=== PATIENT | female | born 1940 | race Caucasian/White ===

== ENCOUNTER → 2016-08-03 | Outpatient (CLI) | payer MEDICARE, BC ==
[~2016-08-03] MED LIST: ALBUTEROL2.5 MG/0.5 INH; AMBIEN10 MG PO; ANORO ELLIPTA1 EACH; ARTIFICIAL TEAR15 ML OPHTH; ASPIRIN LO-DOSE81 MG PO; ASPIRIN325 MG PO; BUMEX1 MG PO; COREG 3.1253.125 MG PO; COZAAR100 MG PO; COZAAR50 MG PO; CRESTOR20 MG PO; DELTASONE10 MG PO; HUMIBID LA (MU600 MG PO; IMDUR30 MG PO; IMDUR60 MG PO; IPRAT-ALBUT 0.5-3 ML INH; LASIX40 MG PO; LIPITOR80 MG; LIPITOR80 MG PO; MIRALAX17 GM PO; NITROGLYCERIN0.4 MG SL; NORVASC5 MG PO; PERCOCET 5-3251 EACH PO; PROTONIX40 MG PO; PROVENTIL OR V6.7 GM INH; PROZAC20 MG PO; RANEXA1000 MG PO; TESSALON PERLE100 MG PO; TYLENOL325 MG PO; ZETIA10 MG PO
[2016-08-03 16:43] LABS: ANION GAP 10.2 (10.0-19.0); CALCIUM 9.2 mg/dL (8.5-10.5); CREATININE 1.2 mg/dL (0.5-1.1)
[2016-08-03 16:47] LABS: POTASSIUM 4.2 mMol/L (3.7-5.1)
== END | disposition disaster alternative care site (69) ==
LOC: LGSOS 16:19
PROVIDERS: Internal Medicine Interventional Cardiology
DX: I20.8 Other forms of angina pectoris (principal)

== ENCOUNTER 2016-11-22 16:30 | Inpatient (IN) | payer MEDICARE, BC ==
[~2016-11-22] VITALS: Ht 157.5 cm; Wt 98.5 kg
--- NOTE | ~2016-11-22 | CON ---
PATIENT'S NAME: CONNOR COOK [facility] AGE: 76 Y [address] ROOM: G6334 [place], [place] [address] LOCATION: GPCU ADMIT DATE: 11/22/2016 Consultation DISCHARGE DATE: FAMILY PHYSICIAN: Nandini Thomas MD ATTENDING PHYSICIAN: Nandini Thomas DATE OF CONSULTATION: 11/24/2016 REFERRING PHYSICIAN: Ezekiel Wilson MD REFERRING PHYSICIAN: Dr. Cazares REASON FOR CONSULTATION: VIVIANA on CKD. HISTORY OF PRESENT ILLNESS: A 76-year-old lady with a complex cardiopulmonary history including coronary artery disease, status post CABG x4 vessel, advanced diastolic heart failure, hypertension, diabetes, hyperlipidemia, carotid artery disease, status post endarterectomy, peripheral artery disease, possible restrictive lung disease, multiple episodes of VIVIANA, possibly cardiorenal syndrome, type 1 in the past, admitted with hypoxic respiratory failure with significant shortness of breath and dyspnea on exertion with NYHA class III to class IV dyspnea thought to be due to volume overloaded, got diuresed gently with Lasix 40 twice a day for a couple of days and then Lasix 40 daily today, creatinine at baseline was 1 to 1.1, maybe 1.2 on occasion, 1.7 on admission, and went up to 2.2 today. We did not see any contrast study or any nephrotoxic exposure since hospital admission. The patient's urine output appears to be high and the patient was almost 1.7 L net negative on the day of admission; however, yesterday, the patient's intake and output was almost equal. Her baseline body weight appears to be between 96 to 98 kilos and today she is 106 kilos, but during my physical exam, except a small elevation of JVD, she does not have any significant sign of fluid overload. She does not have any significant dependent edema. Currently, on 3 L of oxygen. Has mild bibasilar crackles. RV on echo has increased pressure and mildly dilated suggestive of fluid overload, which has been done yesterday morning. The patient otherwise comfortable, sitting up in the chair without any apparent distress, not on any ESTRELLA gerry at this point. No signs of uremia or any other symptoms. REVIEW OF SYSTEMS: GENERAL: No fever. No chills or rigor. HEENT: No sore throat. No sinus congestion. CVS: No chest pain. No exertional shortness of breath. No leg swelling. RESPIRATORY: No shortness of breath. No cough. No wheezing. GENITOURINARY: No pain with urination. No increased frequency. No nocturia. GASTROINTESTINAL: No abdominal pain. No abdominal distention. No nausea or vomiting. NEUROLOGIC: No weakness. No seizures. SKIN: No rash. No itching. ALLERGIES: No seasonal allergy. No hayfever. ENDOCRINE: No heat intolerance. No cold intolerance. PSYCHIATRIC: No sadness. No crying spells. No history of panic attack.PATIENT'S NAME: CONNOR COOK [facility] AGE: 76 Y [address] ROOM: [place] [address] LOCATION: GPCU ADMIT DATE: 11/22/2016 Consultation DISCHARGE DATE: FAMILY PHYSICIAN: Nandini Thomas MD ATTENDING PHYSICIAN: Nandini Thomas PAST MEDICAL HISTORY: 1. Hypertension. 2. Diabetes. 3. Hyperlipidemia. 4. Possible restrictive lung disease. 5. Carotid artery disease. 6. Coronary artery disease. 7. Peripheral vascular disease. HOME MEDICATIONS: 1. Albuterol. 2. Combivent. 3. Oxycodone. 4. Zolpidem. ALLERGIES: IODINE AND SULFA. PAST SURGICAL HISTORY: , hysterectomy, cholecystectomy, CABG, and carotid endarterectomy. SOCIAL HISTORY: Former smoker, stopped several years ago. No 1st or 2nd hand smoke exposure in current days. No alcohol or illicit drug use. FAMILY HISTORY: Diabetes and coronary artery disease. No history of premature CAD, CKD, or sudden . PHYSICAL EXAMINATION: VITAL SIGNS: Blood pressure 130 to 140s/60 to 70, pulse is 70, respiratory rate 18, afebrile, and saturating 90% to 95% on room air. GENERAL: Not in apparent distress. HEAD: Moist mucous membranes. Bilateral PERRLA, EOMI. NECK: Mild elevation of JVD. No thyromegaly or lymphadenopathy. CVS: S1 and S2 normal, regular rate and rhythm. No murmur, rub, gallop. CHEST: Bilateral air entry equal. Occasional bibasilar rales. ABDOMEN: Soft, nontender, nondistended. Bowel sounds present. EXTREMITIES: No cyanosis, clubbing, jaundice. Trace dependent edema. MUSCULOSKELETAL: No limitation of range of motion. SKIN: No pallor, cyanosis, icterus. DRAWING IN MACHINE TENDER: Alert and oriented x3. No gross findings. LABORATORY DATA: Pro-BNP 1192. Chemistry sodium 136, potassium 4.3, chloride 100, bicarbonate 27, BUN 35, creatinine 2.2, glucose 216, calcium 8.7, and albumin 3.4. Urinalysis straw-colored urine with a specific gravity of 1.005, pH of 7, 100 LE, 20 to 50 wbcs, negative for rbc, 2 to 5 epithelial cells, and moderate bacteria. Urine culture is growing gram-negative rods more than 100,000 colonies.PATIENT'S NAME: CONNOR COOK [facility] AGE: 76 Y [address] ROOM: [place] [address] LOCATION: GPCU ADMIT DATE: 11/22/2016 Consultation DISCHARGE DATE: FAMILY PHYSICIAN: Nandini Thomas MD ATTENDING PHYSICIAN: Nandini Thomas ASSESSMENT AND PLAN: 1. Nonoliguric acute kidney injury on chronic kidney disease, stage 3, baseline creatinine around 1.1 to 1.2, with estimated GFR around 40, today creatinine is 2.2. The patient did not get any huge dose of diuretic, had Lasix 40 b.i.d. for last couple of days, but now on Lasix 40 daily; however, had a history of extreme volume responsiveness in the past with diastolic heart failure and possibly pulmonary hypertension plus plan to hold diuretic for now. We will send urinalysis and urine electrolytes including sodium, potassium, creatinine osmolality, and urine urea nitrogen. We will do renal ultrasound to look at renal architecture, corticomedullary differentiation, and renal size, also to rule out any obstructive etiology. Recommend strict intake and output monitoring with daily standing weight, avoid any nephrotoxin exposure including NSAIDs and contrast media or any other nephrotoxic agents. Hemodynamic stability to be maintained with a MAP more than 65. 2. Advanced diastolic heart failure, admitted with dyspnea on exertion, shortness of breath, and hypoxic respiratory failure, currently on 3 L of oxygen, but the patient appears to be comfortable without any significant distress. The patient got 40 of Lasix this morning. We will hold off on further diuretic at this point and we will slowly restart back on her home diuretic regimen. The patient's volume status is likely up than her baseline; however, as mentioned above, the patient is extremely volume sensitive and aggressive diuresis may cause further azotemia without any significant increase in diuresis. 3. Coronary artery disease, status post coronary artery bypass graft x3. Repeat left heart catheterization shows some blockage in the vessels. No further intervention was planned as per Dr. Wilson. 4. Chronic obstructive pulmonary disease versus restrictive lung disease. FVC and FEV1 both in 40% to 50% range, probably need a pulmonary evaluation for further evaluation. 5. Peripheral vascular disease with critical right pulmonary artery stenosis. No posterior artery stenting has been planned at this point. We will follow up. Thank you for allowing me to participate in this patient's care. We will closely monitor the patient's progress along with you. ABHISEKH SUNNY KNIGHT MD /modl /[id number] d: 11/25/16 0043 t: 12/08/16 0947, CONSULTATION REPORT
--- NOTE | ~2016-11-22 | CON ---
PATIENT'S NAME: JOEY [facility] AGE: 76 Y [address] ROOM: [place] [address] LOCATION: GPCU ADMIT DATE: 11/22/2016 Consultation DISCHARGE DATE: FAMILY PHYSICIAN: Nandini Thomas MD ATTENDING PHYSICIAN: Nandini Thomas REFERRING PHYSICIAN: Ezekiel Wilson MD REFERRING PHYSICIAN: Dr. Nandini Thomas. REASON FOR CONSULT: Shortness of breath and chest pain. HISTORY OF PRESENT ILLNESS: This is a 76-year-old female, who was seen by her primary care physician yesterday. She was complaining of increased shortness of breath as well as increased leg edema. She states that she has "gained quite a bit of weight." She was complaining of increased orthopnea and now has a cough that occurs more often when she is lying down. She also notes some discomfort in her chest with activity, especially when she is very short of breath. She reports that she has to stop and rest when she is getting dressed in the morning or walking to the bathroom. She states her symptoms have been "coming on" for the past month or so. She denies feeling any palpitations. She has had some lightheadedness but denies syncope or falls. She currently is [place] Functional Class 3. She received Lasix 40 mg and states she is feeling a little bit better. While talking, she does drop her oxygen sat less than 90% and she is wearing oxygen at 2 L currently. She does not wear O2 at home, other than at nighttime. PAST MEDICAL HISTORY: 1. Coronary artery disease. 2. Essential hypertension. 3. Hyperlipidemia. 4. History of heart failure. 5. Peripheral vascular disease. 6. History of TIA. 7. Asthma. 8. B12 deficiency. 9. Chronic renal insufficiency, stage 3. 10. Claudication. 11. COPD. 12. Depressive disorder. 13. Diabetes mellitus type 2. 14. Neuropathy, peripheral. 15. Obesity. 16. Osteoporosis. PATIENT'S NAME: JOEY [facility] AGE: 76 Y [address] ROOM: [place] [address] LOCATION: GPCU ADMIT DATE: 11/22/2016 Consultation DISCHARGE DATE: FAMILY PHYSICIAN: Nandini Thomas MD ATTENDING PHYSICIAN: Nandini Thomas PAST SURGICAL HISTORY: 1. Tonsillectomy. 2. 1959 and 1964. 3. Ovarian cystectomy. 4. Hysterectomy in . 5. Breast biopsy, left breast, 1969. 6. IVUS to stented RCA with angioplasty of the RCA with stent placement, mid RCA on 12/22/1997. 7. Left heart catheterization, stent to a 90% diagonal with type C dissection, 01/20/1998. 8. Left heart catheterization, PTCA, stent, small diagonal branch. Patent RCA, 02/16/1998. 9. Left heart catheterization, PTCA, totally occluded diagonal branch, 03/23/1998. 10. Cholecystectomy, 2008. 11. Colonoscopy, 09/19/2009. 12. Coronary artery bypass graft surgery in 2001. 13. Left heart catheterization and severe two-vessel disease, 3 of 4 grafts patent, 01/13/2002. 14. Left heart catheterization, PTCA stent of the LAD graft, 06/14/2007. 15. Left heart catheterization, no critical lesions or left main disease, 05/18/2008. 16. EGD, 11/02/2015. 17. Left heart catheterization, 10/05/2015. 18. Normal stress, April 09, 2016. ALLERGIES: TO SULFA, CAUSING SHORTNESS OF BREATH AND HIVES, WELL IODINE CONTRAST. CURRENT MEDICATIONS: Home medications: 1. Acetaminophen 325 mg every 4 hours. 2. Albuterol HFA 1 puff every 4 hours as needed and vial per nebulizer b.i.d. as needed. 3. Aspirin 81 mg daily. 4. Carvedilol 3.125 mg daily. 5. Zetia 10 mg daily. 6. Prozac 20 mg daily. 7. Lasix 40 mg p.o. b.i.d. 8. Ipratropium-albuterol 0.5/3 1 vial b.i.d. nebulizer. 9. Isosorbide 60 mg every day. 10. Nitroglycerin 0.4 mg sublingual p.r.n. 11. Percocet 5/325 2 tablets every 6 hours p.r.n. pain. 12. Artificial tears one drop p.r.n. PATIENT'S NAME: CONNOR COOK [facility] AGE: 76 Y [address] ROOM: [address] [place], [place] [address] LOCATION: GPCU ADMIT DATE: 11/22/2016 Consultation DISCHARGE DATE: FAMILY PHYSICIAN: Nandini Thomas MD ATTENDING PHYSICIAN: Nandini Thomas 13. Ranexa 1000 mg b.i.d. 14. Crestor 20 mg every bedtime. 15. Ambien 10 mg, she takes 1/2 tablet every bedtime. In-hospital medications: 1. Albuterol-ipratropium 0.5-3 mg/mL nebulizer every 4 hours. 2. Lasix IV 40 mg b.i.d. 3. Solu-Medrol 125 mg every 12 hours. 4. Aspirin 81 mg daily. 5. Coreg 3.125 mg p.o. b.i.d. 6. Crestor 20 mg every bedtime. 7. Imdur 60 mg every bedtime. 8. Prozac 20 mg every day. 9. Ranexa 500 mg, she takes a 1000 mg b.i.d. 10. Zetia 10 mg every day. FAMILY HISTORY: Father at 60 of cancer. Mother at the age of 73, she had heart disease. She has 3 brothers and 6 sisters. History is positive for cancer, cardiovascular disease, diabetes mellitus, type 2, and a CVA. SOCIAL HISTORY: She is a former smoker. She smoked at a young age for 4-5 years, socially only. REVIEW OF SYSTEMS: GENERAL: She denies fevers or chills. She reports she has had, "a lot of weight gain." HEENT: Head, no history of headache. Eyes, she denies any recent vision changes. She wears corrective lenses. Ears, no problems with hearing. Nose, no epistaxis. Throat, no difficulty with swallowing. CV: Per HPI. PULMONARY: She has a history of asthma and COPD. She has been complaining of increased shortness of breath as well as orthopnea and a cough. GI: Negative for nausea, vomiting, or diarrhea. No melena or hematochezia. No history of GI bleed. GENITOURINARY: Negative for dysuria, polyuria, hematuria, or frequent urinary tract infections. She is not complaining of polyuria or polydipsia. NEUROLOGIC: No feelings of off-balance. No HAY BALER disease processes. DERMATOLOGIC: No skin, hair, or nail changes that are concerning. HEMATOLOGIC: No anemia or leukemia. MUSCULOSKELETAL: She does complain of arthritic discomfort. PHYSICAL EXAMINATION: VITAL SIGNS: Her blood pressure is 147/69, heart rate 75, respirations 22, PATIENT'S NAME: CONNOR COOK [facility] AGE: 76 Y [address] ROOM: [place] [address] LOCATION: GPCU ADMIT DATE: 11/22/2016 Consultation DISCHARGE DATE: FAMILY PHYSICIAN: Nandini Thomas MD ATTENDING PHYSICIAN: Nandini Thomas temperature is 97.8. Her weight on admission was 106.9. Skin: Warm, dry, and pink. HEENT: Pupils equal, round, and react briskly. LUNGS: Sounds were diminished with a few wheezes. CV: Regular with a normal S1, S2. ABDOMEN: Soft. Bowel sounds are present. EXTREMITIES: Show trace to 1+ pedal edema bilaterally. LABORATORY DATA: Hemoglobin was 12.2, BNP 546, sodium 143, potassium 4.7, BUN 15, creatinine 1.15. Cardiac enzymes are negative x3. Hemoglobin A1c was 7.5. Her white count was 6.6. ASSESSMENT: 1. Shortness of breath. We will await the echocardiogram for further evaluation of her EF and diastolic heart pressures. 2. Chest pain. She recently had a stress test in April that was normal. She is a little hypoxic. We will see what her V/Q scan shows today. 3. Volume overload. We will continue one more day of b.i.d. IV Lasix, and watch for orthostatic hypotension and we will look at her lab values, monitoring her creatinine. The assessment and plan, history of present illness, and physical exam are per Dr. Wilson's. Further recommendations will be forthcoming as information becomes available. BEVERLEY SMITH APRN FOR MD BRANDIE MERRITT/oneyda /[id number] d: 11/23/16 1524 t: 12/07/16 1620, CONSULTATION REPORT
--- NOTE | ~2016-11-22 | ECHO ---
Transthoracic Echocardiography Report (TTE) Demographics Patient Name CONNOR COOK Date of Study 11/23/2016 E Patient Number [id number] Visit Number [id number] Date of 1940 Room Number G6334 Gender Female Number Age 76 year(s) Referring William Moore MD Clearing Distribution Clerk Shelby Lay RDCS, Physician RVT, RDMS, CREDIT COLLECTIONS MANAGER Physician Interpreting Steve Falcon MD Paper Tester Physician Supervising Ordering William Moore MD, MD/MLP Physician Nurse Stress Roundhouse Worker Conclusions Contractility Score Summary Normal Left Ventricular contractility was noted. Summary Technically difficult exam. The estimated left ventricular ejection fraction is 60-65%. The left ventricle is normal in size . Mild to moderate concentric left ventricular hypertrophy. Normal systolic function. Diastolic assessment reveals Grade II pseudonormal diastolic function . E/e' of 18 is consistent with elevated left ventricular filling pressures. The left atrium is mildly dilated by LA volume index measurement. Moderate to severe mitral annular calcification. Mild to moderate calcification of the mitral valve. Trivial mitral regurgitation by color Doppler. The aortic valve is moderately sclerotic. Visualized portions of the aortic root and ascending aorta appear normal in size is heavily calcified. Procedure Type of Study TTE procedure:2D Echocardiogram, M-Mode, Doppler , Color Doppler. Procedure Date Date: 11/23/2016 Start: 03:30 PM Study Location: Inpatient Portable Technical Quality: Fair due to body habitus. Indications:CHF. Additional Indications:CAD, SOB Appropriate Use Criteria: 9 Patient Status: Routine HR: 84 bpm BP: 111/68 mmHg Allergies - Sulfa. M-Mode/2D Measurements LV Diastolic Dimension: 4.6 cm LV Systolic Dimension: 3.02 cm LV Septum Diastolic: 1.26 cm LV PW Diastolic: 1.23 cm AO Root Dimension: 2.2 cm Cardiac Output: 4.47 l/min AV Cusp Separation: 1.7 cm RV Diastolic Dimension: 2.55 cm LA volume: 73 ml LVOT: 1.8 cm RV Base: 3.3 cm LVOT VTI: 20.9 cm RV Mid: 2.8 cm LV Stroke volume: 53.16 ml TAPSE: 1.6 cm Doppler Measurements AV Peak Velocity: 1.37 m/s MV Peak E-Wave: 0.97 m/s AV Peak Gradient: 7.51 mmHg MV Peak A-Wave: 0.87 m/s AV Mean Gradient: 4 mmHg MV E/A Ratio: 1.12 LVOT Peak Velocity: 1.11 m/s MV P1/2t: 65 msec Estimated RAP:8 mmHg PV Peak Velocity: 1.1 m/s E' Septal Velocity: 0.05 m/s PV Peak Gradient: 4.84 mmHg E' Lateral Velocity: 0.06 m/s A' Septal Velocity: 0.1 m/s MV E/E' Ratio: 18 A' Lateral Velocity: 0.11 m/s Findings Left Ventricle The left ventricle is normal in size . Mild to moderate concentric left ventricular hypertrophy. Normal systolic function. Diastolic assessment reveals Grade II pseudonormal diastolic function . E/e' of 18 is consistent with elevated left ventricular filling pressures. Right Ventricle Mildly dilated right ventricle. Left Atrium The left atrium is moderately dilated. Right Atrium The right atrium is not dilated. Mitral Valve Moderate to severe mitral annular calcification. Mild to moderate calcification of the mitral valve. Trivial mitral regurgitation by color Doppler. Aortic Valve The aortic valve is moderately sclerotic. Tricuspid Valve Normal tricuspid valve structure and function. Insufficient tricuspid waveform to assess pulmonary pressures. Pulmonic Valve Normal pulmonic valve structure and function. Pericardial Effusion No evidence of pericardial effusion. Miscellaneous Visualized portions of the aortic root and ascending aorta appear normal in size is heavily calcified. Pleural Effusion No evidence of pleural effusion. Contractility Score LV regional wall motion:(0-Non visualized 1-Normal 2-Hypokinesis 3-Akinesis 4-Dyskinesis 5-Aneurysm) Signature dtt: Ezekiel Wilson (cardio) dtd: 11/23/16 1530 Physician Self Edit
--- NOTE | ~2016-11-22 | ESTC ---
Cardiac Perfusion Imaging Demographics Patient Name JOEY Goyal Gender Female Patient Number [id number] Race Visit Number [id number] [place] [id number] Room Number G6334 Accession Number [id number] Height 62 inches Date of 1940 Weight 235 pounds William Moore MD Interpreting CNC Date of study 11/24/2016 Physician Steve Falcon MD Supervising /RADHA Harmon NM Technologist Vimal Xavier APRN Ordering Physician Steve Falcon MD Stress point of care technician Stress ECG Reading Norbert Harmon Nurse Wong Moore Physician DESEAN RN Mimi Goyal RN Medications Reviewed with Patient prior to Procedure. Procedure Procedure Type: Nuclear Stress Test:Pharmacological, Lexiscan, Cardiolite Stress Test Procedure Start time: 11/24/2016 09:15 Indications: CHF, History of CAD, Diabetes, COPD, Chest heaviness and Hypertension. Risk Factors The patient risk factors include:prior PCI;prior CABG;peripheral arterial disease, obesity, cerebrovascular disease, former tobacco use, treated hypercholesterolemia, treated hypertension, family history of premature CAD, diabetes mellitus, chronic lung disease, dyslipidemia, renal failure, prior heart failure and prior [place] . Conclusions Summary Cardiolite SPECT images demonstrate an anteroseptal and septal fixed defect extending from the base to the mid portion. No evidence of inducible reversibilty. Normal TID ratio Gated images demonstrate mild to moderate hypokinesis of the above mentioned area of fixed defect. LVEF is 44% Stress Protocols Resting ECG RSR with T wave inversion Resting HR:82 bpm Resting BP:107/60 mmHg Pre-stress physical exam: Patient assessed by Trini Toussaint APRN prior to testing. Stress Protocol:Pharmacologic Peak HR:92 bpm HR response: Appropriate Peak BP:121/53 mmHg BP response: Appropriate Predicted HR: 144 bpm HR/BP product:35258 % of predicted HR: 64 Reason for termination:Infusion complete ECG Findings Indeterminate ECG due to baseline abnormalities. Arrhythmias No rhythm abnormality. Symptoms Shortness of breath. Stress Interpretation Appropriate hemodynamic response to Lexiscan. No significant ST-T wave changes with Lexiscan. ECG portion is negative for ischemia by diagnostic criteria. Stress supervision and interpretation provided by Maribel Toussaint APRN . Imaging Results Summed scores - Summed stress score: 15 - Summed rest score: 9 - Summed difference score: 6 Stress ejection Ejection fraction:44 % EDV :111 ml ESV :62 ml Stroke volume :49 ml LV mass :142 gr Imaging Protocols Rest Stress Isotope:Tc99m Sestamibi IV Isotope: Tc99m Sestamibi IV Isotope dose:15.3 mCi Isotope dose:46.3 mCi Date:11/24/2016 08:05 Date:11/24/2016 09:31 Technique: SPECT Technique: Gated Supine SPECT Supine IV remains in place after procedure. Scan Time:45-60 minutes post Scan Time:45-60 minutes post injection injection Procedure Medications - Regadenoson (Lexiscan) 0.4 mg IV over 10-15 sec. I.V. 0.4 mg. Medications administered per verbal order and read back to physician prior to administration. Medical History Admission Data Admission date: 11/22/2016 Admission Time: 17:48 Hospital Status: Inpatient. Signatures dtt: Ezekiel Wilson (cardio) dtd: 11/24/16 0915 Physician Self Edit
--- NOTE | ~2016-11-22 | DS ---
PATIENT'S NAME: JANETTE COOK [place] AGE: 76 Y [address] ROOM: [address] [address] LOCATION: GPCU ADMIT DATE: 11/22/2016 Discharge Summary DISCHARGE DATE: 12/06/2016 FAMILY PHYSICIAN: Nandini Thomas MD ATTENDING PHYSICIAN: Nandini Thomas PRINCIPAL DIAGNOSES: 1. Acute on chronic diastolic congestive heart failure. 2. Acute on chronic kidney failure, chronically stage 3, requiring renal replacement therapy. 3. Acute on chronic hypoxic and hypercapnic respiratory failure. 4. Restrictive and obstructive lung disease. 5. Delirium secondary to acute renal failure, now resolved. 6. Hypertension. 7. Coronary artery disease. 8. Hyperlipidemia. 9. Adult-onset diabetes. 10. Obesity. 11. Gastroesophageal reflux disease. SUMMARY: Janette is a 76-year-old female who is admitted with increasing shortness of breath and fluid retention. She was diuresed. Cardiology was consulted and followed throughout her hospital stay. She was having significant issues with hypoxia. She is maintained on oxygen. Her kidneys were adversely affected with diuresis. Her creatinine and BUN continued to decline daily. Dr. Douglas was consulted and he followed her throughout the hospital stay as well. Her BUN reached 91 and she became delirious. They did undergo immediate renal replacement therapy at that time. She had dialysis 2 consecutive days and then cleared markedly mentally kidney function improving. She was on a strict fluid restriction and that was liberalized from 1000 up to 1200 mL daily. She has been up and about much better. Shortness of breath markedly improved. She is doing significantly better and is stable and ready to go home on 12/06/2016. DISPOSITION: Janette was dismissed on 12/06/2016, in improved condition. DISCHARGE DIET: Diet will be diabetic cardiac prudent diet and then she will follow a 1200 mL fluid restriction. DISCHARGE INSTRUCTIONS: She is to weigh herself daily, and if she goes up by 2 pounds, she is to give us a call. Dr. Douglas wanted her to start taking some Bumex on 12/08. FOLLOWUP: She will follow up with Dr. Douglas on 12/13/2016, and follow up with me on 12/11/2016. PATIENT'S NAME: JANETTE COOK [place] AGE: 76 Y [address] ROOM: [address] [address] LOCATION: GPCU ADMIT DATE: 11/22/2016 Discharge Summary DISCHARGE DATE: 12/06/2016 FAMILY PHYSICIAN: Nandini Thomas MD ATTENDING PHYSICIAN: Nandini Thomas DISCHARGE MEDICATIONS: Her dismissal list: 1. Aspirin 81 mg every day. 2. Coreg 6.25 mg b.i.d. which is a stronger dose. 3. Zetia 10 mg daily. 4. Prozac 20 mg daily. 5. Mucinex 600 mg b.i.d. as needed. 6. Imdur 60 mg daily. 7. Pantoprazole 40 mg daily. 8. MiraLax 17 g daily. 9. Prednisone 10 mg daily for 5 more days and then discontinue. 10. Ranexa 1000 mg b.i.d. 11. Crestor 20 mg at bedtime. 12. DuoNebs b.i.d. and p.r.n. 13. Artificial Tears as needed. 14. Tessalon Perles 200 mg t.i.d. p.r.n. 15. Percocet 5/325 one to two tabs every 6 hours as needed for pain. 16. Proventil inhaler 2 puffs q.4 hours p.r.n. shortness of breath. 17. Nitroglycerin 0.4 mg sublingual as needed for chest pain. 18. Bumex 0.5 mg daily beginning 12/08/2016, and then Tylenol as needed for discomfort. She is to discontinue the Ambien due to the hypoxia and confusion. PROGNOSIS: Fair. MD LARRY ANTONIO/mallikal /[id number] d: 12/09/16 0157 t: 12/10/16 1245, DISCHARGE SUMMARY
--- NOTE | ~2016-11-22 | CON ---
PATIENT'S NAME: JOEY [facility] AGE: 76 Y [address] ROOM: [place] [address] LOCATION: GPCU ADMIT DATE: 11/22/2016 Consultation DISCHARGE DATE: FAMILY PHYSICIAN: Nandini Thomas MD ATTENDING PHYSICIAN: Nandini Thomas DATE OF CONSULTATION: 11/27/2016 REFERRING PHYSICIAN: Ezekiel Wilson MD PULMONARY CONSULT NOTE REASON FOR CONSULT: Dry cough, bronchitis. HISTORY OF PRESENT ILLNESS: A 76-year-old female with history of hypertension, diastolic heart failure, coronary artery disease, status post CABG, CKD stage 3, obesity, was admitted with shortness of breath and acute hypoxic respiratory failure. She has been using oxygen during night as told by her physician and has started using it during the daytime at home paritcularly when she gets short of breath during exertion. According to the patient, she was having dry cough with swelling of her lower extremities since last one month. She was taking water pills as outpatient, which decreased the swelling, but it recurred when she stopped using it. Her cough has been mostly dry. Denies any sputum production. She noted some mild low- grade temperature at home around 100.1, but no further episodes of fevers or chills or hemoptysis. She denies any sick contacts in the past. She has not used any antibiotics recently and not been hospitalized since May of this year. She was told to have COPD in the past and also has received steroid injection for the same when she had excessive cough. PAST MEDICAL HISTORY: Hypertension, diabetes, obesity, coronary artery disease, hyperlipidemia, diastolic heart failure, questionable COPD. ALLERGIES: PER MEDICAL RECORD. MEDICATIONS: As per medical record. FAMILY HISTORY: Negative for lung disease. SOCIAL HISTORY: The patient has minimal smoking history. She stopped smoking 20 years ago. She smoked for 2 to 4 years and only a few cigarettes a day. Denies any alcohol use. PATIENT'S NAME: JOEY [facility] AGE: 76 Y [address] ROOM: [place] [address] LOCATION: GPCU ADMIT DATE: 11/22/2016 Consultation DISCHARGE DATE: FAMILY PHYSICIAN: Nandini Thomas MD ATTENDING PHYSICIAN: Nandini Thomas REVIEW OF SYSTEMS: RESPIRATORY: Complains of dry cough. CARDIOVASCULAR: Denies any chest pain, palpitation, syncope. GENERAL: Denies any anorexia, fever, chills, malaise, weight loss. A 10-point review of systems was performed and is negative except as mentioned above. PHYSICAL EXAMINATION: VITAL SIGNS: Temperature 98.4, pulse 74, respiratory rate 16, blood pressure 102/56, saturation 94% on 1 L. GENERAL: In no acute distress, on 1 L oxygen via nasal cannula. HEENT: Atraumatic, normocephalic. CV: S1, S2 regular. RESPIRATORY: Bilateral bronchial breath sounds. ABDOMEN: Soft, nontender. Bowel sounds positive. EXTREMITIES: No edema. LABORATORY DATA: CMP: Sodium 133, potassium 4, chloride 90, bicarb 34, BUN 72, creatinine 2.6. IMAGING DATA: CT chest without contrast showed no definite infiltrate, bronchial wall thickening. Chest x-ray, no infiltrate, bilateral CP angles clear. Spirometry done in May 2016 showed FEV1 was 38% and FVC 0.88 L (35%). FEV1/FVC was normal. ASSESSMENT AND PLAN: 1. Acute hypoxic respiratory failure, on oxygen 1 L per/minute, satting around 94%. Most likely secondary to fluid overload, has been diuresed. Please obtain ABG, monitor intake and output, and electrolyte. 2. Restrictive lung disease. Obesity could be a contributing factor. As per previous spirometry will need full pulmonary function tests to assess the lung volumes. 3. Questionable chronic obstructive pulmonary disease. She has minimal smoking history. CT scan of chest did not show any significant emphysematous changes in the lungs. She quit smoking 20 years back and smoked only a few cigarettes for 2 to 4 years. According to her, she has received a steroid shot in the past for symptoms like excessive cough. We will continue DuoNeb nebulization for now.She is receiving Solumderol IV. PATIENT'S NAME: CONNOR COOK [facility] AGE: 76 Y [address] ROOM: [id number] [place], [place] [address] LOCATION: GPCU ADMIT DATE: 11/22/2016 Consultation DISCHARGE DATE: FAMILY PHYSICIAN: Nandini Thomas MD ATTENDING PHYSICIAN: Nandini Thomas 4. Acute bronchitis. Started on Levaquin, which should give appropriate coverage. We will send sputum culture and respiratory viral panel. 5. Questionable pulmonary hypertension, group 2 versus group 3. Recent echo done earlier this month showed grade 2 diastolic dysfunction. Tricuspid waveform was insufficient to quantify pulmonary artery pressure. CT chest done during this admission showed enlargement of the PA diameter, will need full workup with pulmonary function tests, polysomnography, and overnight oximetry. 6. Nocturnal hypoxia - will need PSG , DEVIN. 7. Acute kidney injury on chronic kidney. Management as per Nephrology. Thank you for consulting Pulmonary, and we will continue to follow along with you. MD ADALID WOLF/oneyda /[id number] d: 11/28/162 t: 11/28/16 1833, CONSULTATION REPORT
[~2016-11-22 16:30] MED LIST changes: -ANORO ELLIPTA1 EACH; -BUMEX1 MG PO; -CRESTOR20 MG PO; -DELTASONE10 MG PO; -HUMIBID LA (MU600 MG PO; -MIRALAX17 GM PO; -NITROGLYCERIN0.4 MG SL; -TESSALON PERLE100 MG PO
[2016-11-22 18:48] LABS: INR - (THERAPEUTIC) 0.99 (0.92-1.07); PROTIME 10.4 SECONDS (9.8-11.4)
[2016-11-22 19:02] LABS: CPK 123 IU/L (21-215)
--- NOTE | 2016-11-22 19:03 | NUR ---
PATIENT DIRECT ADMIT AT 18:00. TRANSFER PER W/C TO BED W/ 1 ASSIST. PATIENT C/O DYSPNEA W/ WORSE SHORTNESS OF BREATH WITH ACTIVITY. PATIENT STATED SHORTNESS OF BREATH WAS SEVERE RATING 10/10. SATS 90% ON RA, 2L NC WAS APPLIED. SATS 94% ON 2L.
[2016-11-22] MEDS ORDERED: PERCOCET 5-3251 EACH PO (19:59)
[2016-11-22] MEDS ORDERED: NITROGLYCERIN0.4 MG SL (20:00)
[2016-11-22] MEDS ORDERED: LASIX40 MG PO (20:01)
[2016-11-22] MEDS ORDERED: TYLENOL325 MG PO (20:02)
[2016-11-22] MEDS ORDERED: CRESTOR20 MG PO (20:15)
[2016-11-22] MEDS ORDERED: ANORO ELLIPTA1 EACH (20:18)
--- NOTE | 2016-11-22 20:21 | NUR ---
76 Y/O FEMALE ADMITTED FOR CONGESTIVE HEART FAILURE. PT STATES SHE HAS BEEN SHORT OF BREATH, A CHRONIC NON PRODUCTIVE COUGH THAT BECOMES WORSE IN THE LATE AFTERNOONS & EVENINGS. ALSO STATES THAT SHE HAS GAINED APPROX 20 LBS IN THE PAST 3 MONTHS. ALLERGIES - SULFA=HIVES, ITCHING & SOB, IODINATED CONTRAST (ORAL & IV)=SOB AND CAUSED KIDNEY FAILURE. MEDICAL/SURGICAL HISTORY - HTN, HIGH CHOL, HX A FLUTTER, ME IN PAST WITH A 4 VESSEL CABG, MANY HEART CATHS & STENTS WELL HEART CATH THIS YEAR IN [facility]. 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 REPORT GIVEN TO PT PRIMARY CARE NURSE ESTEBAN WILKINS PT KNOWLEDGED ABOUT ADM EDUCATION.
[2016-11-22 22:00] LABS: BILIRUBIN URINE NEGATIVE (NEGATIVE); BLOOD URINE NEGATIVE /UL (NEGATIVE); COLOR URINE STRAW (YELLOW); GLUCOSE URINE NEGATIVE (NEGATIVE); KETONE URINE NEGATIVE (NEGATIVE); LEUKOCYTES URINE 100 /UL (NEGATIVE); NITRITE URINE NEGATIVE (NEGATIVE); PROTEIN URINE NEGATIVE (NEGATIVE); SPEC GRAVITY URINE 1.005 (1.003-1.035); TURBIDITY URINE 1+ (CLEAR); UROBILINOGEN URINE NORMAL (NORMAL)
[2016-11-22 22:10] LABS: BACTERIA URINE MODERATE (NEGATIVE); RBC URINE NEGATIVE #/HPF (NEGATIVE); WBC URINE 20-50 #/HPF (NEGATIVE)
[2016-11-23 00:44] LABS: CPK 135 IU/L (21-215)
--- NOTE | 2016-11-23 04:38 | NUR ---
A&Ox3. SOB with activity. Expiratory wheeze, improving. 3L NC. Non productive, hacking cough. 40mg IV Lasix given, 2150ml UOP. UA postive for UTI this shift. VQ Scan today. 2000ml fluid restriction. Cardiac diet. IV to R) Hand SL. SBP 140s. HR 80s-90s. Foot pumps. Orthostatic BPs qAM.
[2016-11-23 07:04] LABS: CPK 183 IU/L (21-215)
[2016-11-23 10:25] LABS: ALBUMIN 3.4 gm/dL (3.5-5.0); CALCIUM 9.2 mg/dL (8.5-10.5); CREATININE 1.7 mg/dL (0.5-1.1); PHOSPHORUS 3.6 mg/dL (2.5-4.9)
[2016-11-23 10:26] LABS: ANION GAP 13.9 (10.0-19.0); MAGNESIUM 1.7 mg/dL (1.8-2.6); POTASSIUM 4.9 mMol/L (3.7-5.1)
--- NOTE | 2016-11-23 11:52 | NUR ---
Introduced self and CM role to Janette Salgado". Pinky tells me that she lives at home in [place], [place] with her , Addi. Plan is to return home upon dismissal. Denies any needs for DME or HHC. States she has a FWW at home to use if she needs it, but usually doesn't use it. She is on O2 at baseline. PCP is . Pinky manages her own medications, reports that she takes about 8-9 per day and uses a 7 day pill box to help keep things organized. Has no concerns about returning home. Says that her sister will transport her home when MD dismisses her. No other questions, needs or concerns. CM to conintue to follow and assist. Plan home.
--- NOTE | 2016-11-23 18:21 | NUR ---
PATIENT TO [facility] FOR VQ SCAN THIS AM. ECHO COMPLETED THIS AFTERNOON. STRESS TEST IN AM, NPO AFTER MIDNIGHT. TAPERING DOWN LASIX AND SOLUMEDROL.
[2016-11-24 03:47] LABS: ALBUMIN 3.4 gm/dL (3.5-5.0); ANION GAP 13.3 (10.0-19.0); CALCIUM 8.7 mg/dL (8.5-10.5); CREATININE 2.2 mg/dL (0.5-1.1); MAGNESIUM 1.7 mg/dL (1.8-2.6); PHOSPHORUS 4.5 mg/dL (2.5-4.9); POTASSIUM 4.3 mMol/L (3.7-5.1)
--- NOTE | 2016-11-24 04:45 | NUR ---
Significant Event: A&Ox3. RR 22-24. Other VSS on 3L/NC. Orthostatic BPs this am. Lungs c/d. 1 assist to BR, adequate UOP. No complaints of pain throughout shift. Cardiac diet, 2 L fluid restriction. NPO since midnight for stress test today. R outer forearm IV SL. Follow up: Stress test today
--- NOTE | 2016-11-24 10:41 | NUR ---
Diabetes center note: 1000 Diabetes management booklet provided and asked patient to complete the Diabetes Survival Skills Assessment to assess educational needs. Patient states she does not check her blood sugars at home and has never been told to at home. Current A1C is 7.5 % 11/23/16. Patient states that the only time her blood sugars "go up" is when she is in the hospital. Encouraged patient to complete this form and will check back with her later in the day.
--- NOTE | 2016-11-24 13:15 | NUR ---
Talked with RN who tells me that Janette is down for a stree test right now, but will be back up after a while. Let her know that I had seen/visited with Janette yesterday and her plan was home with no CM needs identified at that time. Plan home. CM to continue to follow and assist.
--- NOTE | 2016-11-24 14:54 | NUR ---
Diabetes center note: 1431 Patient has been in and out of her room, several times today for stress test, so she says that she has not had time to complete the Diabetes Assessment form, denies concerns at this time. Patient agrees to complete the form with the help of her family later today, if patient is still here on 11/27/16 will continue to follow.
--- NOTE | 2016-11-24 16:51 | NUR ---
STRESS TEST TODAY. NO REPORT OF YET. PATIENT HAS BEEN UP IN [place] X1 TODAY AND HAS DONE WELL. NEED TO PLACE SHERWOOD WHEN PATIENT GOES TOBED.
[2016-11-24 19:53] LABS: BILIRUBIN URINE NEGATIVE (NEGATIVE); BLOOD URINE NEGATIVE /UL (NEGATIVE); COLOR URINE YELLOW (YELLOW); GLUCOSE URINE NEGATIVE (NEGATIVE); KETONE URINE NEGATIVE (NEGATIVE); LEUKOCYTES URINE 500 /UL (NEGATIVE); NITRITE URINE NEGATIVE (NEGATIVE); PROTEIN URINE NEGATIVE (NEGATIVE); SPEC GRAVITY URINE 1.015 (1.003-1.035); TURBIDITY URINE 1+ (CLEAR); UROBILINOGEN URINE NORMAL (NORMAL)
[2016-11-24 20:11] LABS: RBC URINE 0-2 #/HPF (NEGATIVE); WBC URINE 20-50 #/HPF (NEGATIVE)
[2016-11-24 20:12] LABS: AMORPHOUS URINE 1+ (NEGATIVE); BACTERIA URINE MANY (NEGATIVE); WBC CLUMPS URINE FEW (NEGATIVE)
[2016-11-25 03:40] LABS: ALBUMIN 3.6 gm/dL (3.5-5.0); ANION GAP 10.5 (10.0-19.0); CALCIUM 8.2 mg/dL (8.5-10.5); CREATININE 2.3 mg/dL (0.5-1.1); PHOSPHORUS 5.1 mg/dL (2.5-4.9); POTASSIUM 4.5 mMol/L (3.7-5.1)
--- NOTE | 2016-11-25 04:38 | NUR ---
A/O. HR 70-80s. SBP 120-150s. 2L NC O2 CURRENTLY. WEARS 2L AT NIGHT AT HOME. WHEEZY AT TIMES. HARSH NONPRODUCTIVE COUGH. COUGH SYRUP WITH CODINE GIVEN x2. PERCOCET 2TABS GIVEN x1 FOR BILAT LEG PAIN. KAELA INSERTED THIS SHIFT. 1A GB UP TO BAHTROOM. NO BM.
--- NOTE | 2016-11-25 18:10 | NUR ---
PATIENT HAD INCREASED SHORTNESS OF BREATH AND WHEEZING THIS MORNING AFTER HER SHOWER. DR ORDERED STAT BREATHING TX AND CHEST XRAY, INCREASED LASIX. RADIOLOGY TO CALL RESULTS OF CHEST XRAY TO DR KNIGHT. IV LEVAQUIN INITIAL DOSE GIVEN FOR URINE CULTURE RESULTS. PATIENT STATED BREATHING IMPROVED THIS AFTERNOON. COUGH SYRUP GIVEN X2. CONTINUED 2L NC. FLUID RESTRICTION DECREASED TO 1200 ML/DAY.
[2016-11-26 04:42] LABS: ALBUMIN 3.5 gm/dL (3.5-5.0); ANION GAP 11.3 (10.0-19.0); CALCIUM 8.4 mg/dL (8.5-10.5); CREATININE 2.3 mg/dL (0.5-1.1); PHOSPHORUS 5.7 mg/dL (2.5-4.9); POTASSIUM 4.3 mMol/L (3.7-5.1)
--- NOTE | 2016-11-26 05:43 | NUR ---
Significant Event: Patient is alert/oriented x3. Vital signs are stable. On 2L O2, turned up to 3L while asleep. PRN Percocet q.6hr given for bilateral lower extremity pain, with relief. PRN codeine with guafeinesin given for cough, with relief. Villalobos in place for accurate I/O's, had 1500 mL UOP. On 1200 mL fluid restriction, patient is compliant. Follow up: Continue to monitor per plan of care. Continue with steroids and IV Levaquin.
--- NOTE | 2016-11-26 14:39 | NUR ---
Significant Event:A/O X3. Ambulates in the baker with wheeled walker and 1 assist with oxygen. UP in chair for meals. Showered self this AM. SBP 100's to 120's. Lasix IV increased to 60 mg. O2 91% after shower on room air. MOM, Cough med and 2 percocet given with AM meds. 1115 BS treated. Follow up:MOM daily until BM. 1.2 L Fluid restriction/24 hours.
[2016-11-27 03:54] LABS: ALBUMIN 3.8 gm/dL (3.5-5.0); CALCIUM 8.6 mg/dL (8.5-10.5); CREATININE 2.6 mg/dL (0.5-1.1); PHOSPHORUS 5.6 mg/dL (2.5-4.9)
--- NOTE | 2016-11-27 04:51 | NUR ---
Significant events: Pt A/Ox3. VSS. On 2L/NC. Sore throat and cough continue, cough syrup with codeine given x2. Percocet x1 for general aches and pains. 1200mL fluid restrictions. Villalobos in place. Up 1PA. Slept well this shift.
--- NOTE | 2016-11-27 10:43 | NUR ---
A-SCREENED D/T LOS CHF. C/O SORE THROAT/COUGH HT: 62 IN. WT: 104.0 KG. BMI: 42.9. IBW: 50 KG LABS: NA 133, K+ 4.0, GLU 210, BUN 72, FRUIT HARVEST WORKER 2.6, ALB 3.8 MEDS: LASIX, DELTASONE, LEVAQUIN, MAG-OX, PROZAC, AMBIEN, RENEXA ER, ZETIA, ZOFRAN DIET RX: 2-3 GM NA W/1200 ML FLUID RESTRICTION. PO INTAKE REF-100%; AVG IS 50%. EST NUTR NEEDS: 2125-1621 KCALS (15-20 KCALS/KG) 75-100 GM PROTEIN (1.5-2.0 GM/KG IBW) FLUID PER MD D-NOT AT NUTRITION RISK; NO NUTRITION DX IDENTIFIED I-CONTINUE W/CURRENT DIET RX M/E-F/U PO INTAKE, WT, AND POC IN 6-8 DAYS
--- NOTE | 2016-11-27 12:16 | NUR ---
Social visit with Janette, she tells me that she is having issues with nausea today so she won't be dismissing. States that she had a good weekend and has been up to walk around. Has no concerns with going home upon dismissal. CM to continue to follow and assist. Plan home.
--- NOTE | 2016-11-27 12:54 | NUR ---
Diabetes center note; 1100 Current A1C 7.5 %. Wrote recommendation for patient to have basal insulin started, Levemir, as blood sugars are in 200's, and patient is on Prednisone 40 mg daily. Patient states she never has any trouble with diabetes at home, is not taking any oral meds or insulin for diabetes and but she has not been checking her blood sugars either. Explained how prednisone and other physcial illnesses, including her kidney function can affect diabetes control and the need for us to obtain and maintain proper control of blood sugars to reduce risks of further complications related to diabetes, eyes, kidneys, heart and nerves. Patient states understanding this. Over the weekend, patient did start working on filling out the Diabetes Assessment form, but she states, "I realize I just don't know aything" CDE recommended for us to arrange a time when other family members can be present for teaching, within the next day or two. Patient is willing.
--- NOTE | 2016-11-27 14:54 | NUR ---
CONSULT RECEIVED THAT PT MAY HAVE SOUPS WITHOUT COUNTING TOWARDS FLUID RESTRICTION, PER MD ORDER. NOTE MADE FOR STAFF IN COMPUTRITION.
--- NOTE | 2016-11-27 17:37 | NUR ---
Significant Event: A/O X 3. BOUT OF NAUSEA WITH SCANT EMESIS THIS A.M. SBP 131-176. GIVEN B/P MEDS WITH SBP IN 140'S. HR SR IN 60-70'S AFEBRILE. DIURETICS GIVEN. GOOD SHERWOOD CATH URINE OUTPUT. HARSH NON-PROD. COUGH. DR. NAIMA CHACKO. CAME TO SEE PT. Follow up: CONT. TO MONITER RENAL STATUS.
[2016-11-27 19:44] LABS: BICARBONATE 38.5 mmol/L (18.0-23.0); PCO2 65 mmHg (35-45); PO2 63 mmHg (80-90)
--- NOTE | 2016-11-28 05:05 | NUR ---
Significant Event: A/O x3. Afebrile. c/o neuropathy pain, stomachache. Gave percocet x1. VSS on 1-2L. SBP 109-148. HR 60-70s. Resp 24-28. LS sl coarse. Strong/harsh productive cough. no with 1375 output. codeine x1 given. Cooperative with cares. Follow up: Resp sputum needed.
[2016-11-28 05:13] LABS: ALBUMIN 3.8 gm/dL (3.5-5.0); CALCIUM 8.7 mg/dL (8.5-10.5); CREATININE 2.6 mg/dL (0.5-1.1); PHOSPHORUS 4.9 mg/dL (2.5-4.9); POTASSIUM 3.8 mMol/L (3.7-5.1)
[2016-11-28 05:17] LABS: ANION GAP 10.8 (10.0-19.0)
--- NOTE | 2016-11-28 11:34 | NUR ---
Diabetes Center note: 1000 Several attempts have been made to provide Diabetes Education but patient states she is not feeling well, and she wants to rest. A new blood glucose meter is brought into room, but patient states she is not willing to learn this until Dr. Thomas says that she needs to. Again patient states she "gets along just fine at home" and does think she needs education, will try to get family involved also. In on-going review of chart, blood sugar remain in 200's and wrote recommendations for Levemir insulin to be started. Spoke with the Velocity Shooter and Hospitalist and both state they agree with this, but both state they would leave that to the discretion of the primary care Dr. Thomas. Will attempt Diabetes Education at another time.
--- NOTE | 2016-11-28 17:06 | NUR ---
Significant Event: A/OX3, VSS ON RA. PERCOCET GIVEN @ 0758 FOR COMPLAINTS OF PAIN. COUGH SYRUP GIVEN X2 LAST @ 1520 FOR COUGH. LEVAQUIN CHANGED TO PO. LASIX CHANGED BACK TO IVP BID. SLIV TO R)AC. FAMILY HERE TODAY. PT. WALKED IN HALLS X1 TODAY. SHERWOOD INTACT WITH 1550mL UOP. CONTINUES ON FLUID RESTRICTION, PT. FOLLOWS IT WELL. ZOFRAN GIVEN @ 1034 FOR NAUSEA, MAY RECEIVE 1 MORE DOSE BEFORE MIDNIGHT. NO BM YET. LUNG SOUNDS STILL SLIGHTLY COARSE. PT. MIGHT LIKE TO TAKE MEDS TONIGHT POSSILBLY IN APPLESAUCE OR MAYBE CRUSHED, FEELS LIKE THEY ARE GETTING STUCK. Follow up: CONTINUE WITH POC.
[2016-11-29 04:19] LABS: ALBUMIN 3.8 gm/dL (3.5-5.0); CALCIUM 9.4 mg/dL (8.5-10.5); CREATININE 2.6 mg/dL (0.5-1.1); PHOSPHORUS 4.8 mg/dL (2.5-4.9); POTASSIUM 3.5 mMol/L (3.7-5.1)
[2016-11-29 04:20] LABS: ANION GAP 9.5 (10.0-19.0)
--- NOTE | 2016-11-29 05:08 | NUR ---
Significant Event: A/O x3, NO N/T. SBA, GAITBELT. R) AC, SALINE LOCKED, NO COMPLICATIONS. PULSES 1+ UPPER AND LOWER EXTREMITIES. GENERALIZED EDEMA THROUGHOUT. SCATTERED BRUISING ON ARMS, OPEN TO AIR. PATIENT ON 2L O2 VIA NC. PATIENT HAS HARSH, NON-PRODUCTIVE COUGH. CODEINE COUGH SYRUP PRN FOR COUGH. CARDIAC, DIABETIC DIET. ACCU CHECK ACHS, GIVEN 2 UNITS LAST NIGHT. SHERWOOD CATH IN. 1200 ML FLUID RESTRICTION. Follow up:
--- NOTE | 2016-11-29 16:27 | NUR ---
Significant Event: A/OX3, VSS ON 2L PER NC. PT. WALKED X1 IN [place] WITH CARDIAC REHAB. DID HAVE AN EPISODE LATER IN THE MORNING WHERE SHE FELT DIZZY AND BP WAS 93/52, HAD PT. GO BACK TO BED AND SBP HAVE BEEN 110-120'S THROUGHOUT THE REST OF SHIFT, PT. STILL FEELING DIZZY ON/OFF, WAITING FOR DR. LEÓN TO CALL BACK. MOM AND MYLANTA GIVEN TODAY X1. LASIX DECREASED TO 20mg IVP BID, STARTING EMBER., HOLDING TODAY'S AFTERNOON DOSE. PT. HAS EATEN JUST BITES OF MEALS TODAY. NO BM SINCE 11/22, DR. SPENCER. PT. HAS SLEPT MOST OF THE AFTERNOON. NO PAIN. COUGH GETTING MUCH BETTER. PT. FEELS LIKE HER BREATHING IS BETTER POST AFTERNOON BREATHING TREATMENT. Follow up: CONTINUE WITH POC.
--- NOTE | 2016-11-30 04:45 | NUR ---
Significant Event: A/O x3, NO N/T. SBA, WALKER AND GAITBELT. R) AC IV WITH NO COMPLICATIONS. SCATTERED BRUISING ON ARMS. CODEINE COUGH SYRUP GIVEN TWICE DURING SHIFT. PATIENT'S LUNGS AT 2ND ASSESSMENT WERE COURSE THROUGHOUT, PATIENT'S SATS DROPPED, BUMPED UP FROM 2L TO 6L VIA NC. CURRENTLY DOWN TO 4L O2. CARDIAC DIET. 1200ML FLUID RESTRICTION. SHERWOOD IN, NO COMPLICATIONS. GIVEN LASIX 40MG x1 PER ORDER. PATIENT THREW UP WITH 2100 MEDS. PATIENT DID NOT SLEEP MUCH. Follow up:
[2016-11-30 04:50] LABS: ALBUMIN 3.9 gm/dL (3.5-5.0); CALCIUM 9.2 mg/dL (8.5-10.5); CREATININE 2.8 mg/dL (0.5-1.1); PHOSPHORUS 3.8 mg/dL (2.5-4.9); POTASSIUM 3.2 mMol/L (3.7-5.1)
[2016-11-30 04:53] LABS: ANION GAP 10.2 (10.0-19.0); MAGNESIUM 3.8 mg/dL (1.8-2.6)
--- NOTE | 2016-11-30 13:37 | NUR ---
Social visit with Janette, she tells me she still isn't feeling the greatest and is planning on being here with us for a bit. I let her know that this was fine and when it was closer to dismissal I would come back by and talk more with her then. Name is still on her whiteboad incase any questions come up in the meantime. CM to continue to follow and assist.
--- NOTE | 2016-11-30 17:00 | NUR ---
PATIENT HAVING FREQ PVC'S IN MORNING, C/O NAUSEA AND DIZZINESS. PO POTASSIUM AND ZOFRAN GIVEN, HELD LASIX, D/C'D LEVAQUIN. ORDER TO STOP FLUID RESTRICTION TODAY. ABG'S ORDERED FOR AM. ORDER FOR MIRALAX FOR CONSTIPATION, PATIENT DID NOT WANT AT THAT TIME. UP TO BEDSIDE COMMODE W/ 1 ASSIST.
[2016-12-01 04:31] LABS: ALBUMIN 3.8 gm/dL (3.5-5.0); CALCIUM 8.7 mg/dL (8.5-10.5); CREATININE 2.9 mg/dL (0.5-1.1); PHOSPHORUS 4.1 mg/dL (2.5-4.9); POTASSIUM 3.4 mMol/L (3.7-5.1)
[2016-12-01 04:32] LABS: ANION GAP 10.4 (10.0-19.0)
[2016-12-01 06:00] LABS: BICARBONATE 44.7 mmol/L (18.0-23.0); PCO2 56 mmHg (35-45); PO2 64 mmHg (80-90)
[2016-12-01 12:11] LABS: BASOPHIL % 0.1 %; EOSINOPHIL % 0.1 %; HEMATOCRIT 40.8 % (33.0-46.0); IMMATURE GRANULOCYTE # 0.1 K/uL (0.0-0.3); IMMATURE GRANULOCYTE % 0.6 %; LYMPHOCYTE # 2.4 K/uL (0.8-4.0); LYMPHOCYTE % 15.4 %; MCHC 34.3 gm/dL (32.0-36.5); MCV 81.6 fl (83.0-98.0); MONOCYTE # 2.3 K/uL (0.0-1.0); MPV 10.1 fl (9.4-12.4); NEUTROPHIL # (ANC) 10.7 K/uL (1.8-7.8); NEUTROPHIL % 68.8 %; NRBC % 0 /100WBC (0-0.00); PLATELET COUNT 257 K/uL (150-450); RDW-CV 13.4 % (11.9-14.6); WBC 15.6 K/uL (4.0-11.0)
[2016-12-01 12:17] LABS: PROTIME 10.5 SECONDS (9.8-11.4); PTT 28 SECONDS (25-32)
--- NOTE | 2016-12-01 19:51 | NUR ---
PATIENT UP TO CHAIR, C/O FEELING TOO DIZZY TO TOLERATE STAYING UP IN CHAIR THIS MORNING. BRIANA Willingham THIS AM, REFUSED MEALS AND MOST MEDS D/T NAUSEA. DIALYSIS LINE PLACED AND PATIENT TO DIALYSIS THIS AFTERNOON.
[2016-12-01 20:58] LABS: BICARBONATE 31.8 mmol/L (18.0-23.0); PCO2 49 mmHg (35-45); PO2 75 mmHg (80-90)
[2016-12-01 21:07] LABS: BASOPHIL % 0.1 %; HEMATOCRIT 40.5 % (33.0-46.0); HEMOGLOBIN 13.7 g/dL (10.0-15.0); IMMATURE GRANULOCYTE # 0.1 K/uL (0.0-0.3); IMMATURE GRANULOCYTE % 0.4 %; LYMPHOCYTE # 1.3 K/uL (0.8-4.0); LYMPHOCYTE % 10.2 %; MCH 27.8 pg (27.0-34.0); MCHC 33.8 gm/dL (32.0-36.5); MCV 82.2 fl (83.0-98.0); MONOCYTE # 1.2 K/uL (0.0-1.0); MONOCYTE % 10.2 %; NEUTROPHIL # (ANC) 9.7 K/uL (1.8-7.8); NEUTROPHIL % 79.1 %; NRBC % 0 /100WBC (0-0.00); PLATELET COUNT 209 K/uL (150-450); RBC 4.93 M/uL (3.50-5.50); RDW-CV 13.6 % (11.9-14.6); WBC 12.2 K/uL (4.0-11.0)
[2016-12-01 21:21] LABS: ALBUMIN 3.4 gm/dL (3.5-5.0); CALCIUM 7.7 mg/dL (8.5-10.5); PHOSPHORUS 2.5 mg/dL (2.5-4.9); POTASSIUM 4.2 mMol/L (3.7-5.1)
[2016-12-01 21:24] LABS: ANION GAP 11.2 (10.0-19.0)
--- NOTE | 2016-12-02 04:10 | NUR ---
Significant Event: Patient is disoriented to time and occasionally place. Visual and auditory halucinations. Has conversations with herself. Poor eye contact while assessing her, will stare at the ceiling. Becomes agitated with re-oriention. VSS on 2L O2. Harsh cough, non-productive. Temp dialysis cath to right subclaiv with pig tail that can be used by staff assistant. Transfered to [facility] with 1PA, shaking/tremors noted. Large BM this evening with out ordered enema. Patient is to go down to dialysis at 0830/0900. Follow up: continue to monitor mental status
[2016-12-02 09:04] LABS: ALBUMIN 3.4 gm/dL (3.5-5.0); ANION GAP 11.3 (10.0-19.0); CALCIUM 8.1 mg/dL (8.5-10.5); PHOSPHORUS 2.7 mg/dL (2.5-4.9); POTASSIUM 4.3 mMol/L (3.7-5.1)
--- NOTE | 2016-12-02 17:45 | NUR ---
ANSWERES A&O QUESTIONS BUT MAKES "OFF WALL STATEMENTS" AND IS HAVING VISUAL, TACTILE, AND AUDITORY HALLUCINATIONS. LS CLEAR/DIM. BS ACTIVE. VD PER KAELA. CSM WNL. DIALYSIS TODAY. R SUBCALVIAL DIALYSIS CATH. 1L02. SBP 110'S-170'S. HR 70'S-100'S. AFEBRILE. ACHS. 1PA. CONT PLAN OF CARE
[2016-12-03 03:31] LABS: ALBUMIN 3.3 gm/dL (3.5-5.0); ANION GAP 10.6 (10.0-19.0); CALCIUM 8.2 mg/dL (8.5-10.5); CREATININE 1.6 mg/dL (0.5-1.1); PHOSPHORUS 2.3 mg/dL (2.5-4.9); POTASSIUM 4.6 mMol/L (3.7-5.1)
[2016-12-03 03:33] LABS: MAGNESIUM 3.2 mg/dL (1.8-2.6)
--- NOTE | 2016-12-03 05:14 | NUR ---
Significant Event: A/O x3 at times. Forgetful, says "off the wall" statements. Agitated during medication administration. Has conversations with herself. VSS on 1L. SBP 120-160s. HR 50-60s. LS coarse upper lobes, 1+ edema. Intermittent harsh/hacking cough. Villalobos with 400 uop. Rt IJ dialysis line with pigtail-okay for RN to use for blood draws. Follow up: Continue to monitor per plan of care.
--- NOTE | 2016-12-03 11:38 | NUR ---
A-NUTRITION F/U 12/01 TEMP. DIALYSIS LINE PLACED AND WENT DOWN TO DIALYSIS; ALSO HAD DIALYSIS ON 12/02. DISORIENTED TO TIME AND OCC. PLACE. HAVING VISUAL, TACTILE, AND AUDITORY HALLUCINATIONS. (+)BM LABS: NA 131, K+ 4.6, GLU 114, BUN 36, ESCROW AGENT 1.6, ALB 3.3 MEDS: ALBUMIN, MIRALAX, DELTASONE, ZOFRAN, LEVEMIR, NOVOLOG (MOD SS) DIET RX: CARDIAC DIET W/1200 ML FLUID RESTRICTION. PER MD, PT MAY HAVE SOUPS AND IT IS NOT TO COUNT TOWARD FLUID RESTRICION. PO INTAKE HAS DECLINED SINCE LAST NOTE; REF-75%; AVG IS 38%. NUTR NEEDS REASSESSED D/T DIALYSIS: 1750 KCALS (35 KCALS/KG IBW), 60-65 GM PROTEIN (1.2-1.3 GM/KG IBW), FLUID PER MD D-AT NUTRITION RISK WITH INADEQUATE ORAL INTAKE R/T ALTERED APPETITE SECONDARY TO ALTERED MENTAL STATUS, RENAL FXN AEB INTAKE RECORDS, CHART REVIEW, AND START OF DIALYSIS I-START ENSURE COMPACT TID W/MEALS M/E-GOAL: PO INTAKE >/=50% BY NEXT F/U 1)F/U PO INTAKE, SUPPLEMENT, AND POC IN 3-5 DAYS 2)ASSIST NEEDED
--- NOTE | 2016-12-03 16:03 | NUR ---
Significant Event:VSS.1L PER NC.DENIES ANY PAIN.SHERWOOD TO BORIS, PATENT.PLANS FOR DIALYSIS IN AM.1 ASSIST+WALKER. AMBULATED IN HALLS. Follow up:WILL CONTINUE TO MONITOR PER PLAN OF CARE.
[2016-12-04 03:21] LABS: ANION GAP 10.9 (10.0-19.0); CALCIUM 8.2 mg/dL (8.5-10.5); CREATININE 1.5 mg/dL (0.5-1.1); PHOSPHORUS 2.5 mg/dL (2.5-4.9); POTASSIUM 3.9 mMol/L (3.7-5.1)
[2016-12-04 03:22] LABS: MAGNESIUM 2.9 mg/dL (1.8-2.6)
--- NOTE | 2016-12-04 04:37 | NUR ---
Significant Event: A/O x3 at all times. Rested well throughout the night. Afebrile. Denies pain. VSS on 1L. SBP 120-160s. LS clear dim. Harsh hacking cough. Villalobos with 750 out. Ambulated in baker. Uses call light appropriately. Cooperative with cares. Follow up: Continue to monitor per plan of care.
--- NOTE | 2016-12-04 19:00 | NUR ---
PATIENT UP TO CHAIR W/ 1 ASSIST. A/OX3, NO DIZZINESS OR NAUSEA. SBP 90'S-160, HR 57-61. SATS MAINTAINED ON RA. DIALYSIS LINE DRESSING CHANGED BY DR MCNAMARA.
[2016-12-05 04:09] LABS: ALBUMIN 3.1 gm/dL (3.5-5.0); ANION GAP 9.8 (10.0-19.0); CALCIUM 8.4 mg/dL (8.5-10.5); PHOSPHORUS 3.1 mg/dL (2.5-4.9); POTASSIUM 3.8 mMol/L (3.7-5.1)
[2016-12-05 04:11] LABS: MAGNESIUM 2.8 mg/dL (1.8-2.6)
--- NOTE | 2016-12-05 04:44 | NUR ---
Significant Event: A/O x3. Afebrile. Pain in legs. Gave percocet x1. Complained of lightheadedness around 0115, BP 94/55. Otherwise blood pressures systolic 110-150s. Ambulated in room, standby assist. Occasional cough. BS 164, gave 2 units novolog. Cooperative with cares. Follow up: Continue to monitor per plan of care.
--- NOTE | 2016-12-05 16:03 | NUR ---
Social visit with Janette, she was going to work with therapies so I didn't stay long and chat. She tells me that it is still her plan to go home upon dismissal. She is hoping that she can go home tomorrow, says that family will come and get her and take her home. No other questions, needs or concerns. CM to continue to follow and assist. Plan home.
--- NOTE | 2016-12-05 17:06 | NUR ---
SIGNIFICANT EVENT: Patient A/O x3. Ambulates SBA. No c/o of pain, dizziness, or nausea this shift. VSS. SBP 114-150. Sats maintained on RA. Dialysis line dressing dry and intact. Cooperative with cares. FOLLOW UP: Possibly home tomorrow. Continue to monitor per plan of care.
--- NOTE | 2016-12-05 17:09 | NUR ---
SIGNIFICANT EVENT: Patient A/O x3. Ambulates SBA. VSS. SBP 114-150. Sats maintained on RA. No c/o pain, dizziness, or nausea this shift. Dialysis line dressing dry and intact. Cooperative with cares. FOLLOW UP: Possibly d/c tomorrow. Continue to monitor per plan of care.
--- NOTE | 2016-12-05 17:25 | NUR ---
I HAVE READ AND AGREE WITH CHARTING DONE BY Kyara BRITTON STUDENT NURSE HERMES WILKINS
--- NOTE | 2016-12-06 04:20 | NUR ---
Significant Event: A&Ox3, VSS on room air. dialysis cath to right neck intact with no complications. Transfers with SBA to bathroom. Voiding and taking PO well. 1200ml fluid restriction. ACHS Moderate sliding scale. Passing gas but no BM since 12/01. Rested well Follow up:
[2016-12-06 06:15] LABS: ALBUMIN 3.1 gm/dL (3.5-5.0); ANION GAP 11.6 (10.0-19.0); CALCIUM 8.4 mg/dL (8.5-10.5); CREATININE 1.8 mg/dL (0.5-1.1); MAGNESIUM 2.7 mg/dL (1.8-2.6); PHOSPHORUS 3.3 mg/dL (2.5-4.9); POTASSIUM 3.6 mMol/L (3.7-5.1)
[2016-12-06] MEDS ORDERED: HUMIBID LA (MU600 MG PO (13:17)
[2016-12-06] MEDS ORDERED: PROTONIX40 MG PO (13:21)
[2016-12-06] MEDS ORDERED: DELTASONE10 MG PO (13:23)
[2016-12-06] MEDS ORDERED: MIRALAX17 GM PO (13:25)
[2016-12-06] MEDS ORDERED: TESSALON PERLE100 MG PO (13:29)
[2016-12-06] MEDS ORDERED: BUMEX1 MG PO (13:38)
--- NOTE | 2016-12-06 14:57 | NUR ---
Patient discharged to home, wheeled out to private auto. VSS. RA. Denies shortness of breath. Patient educated on new medication list, weighing herself daily and parameters to notify her primary for weight gain. Educated on Fluid restriction, eating healthy with DM, cholesterol, and low salt choices. Central catheter d/c'd educated patient on keeping dressing intact for 24 hours.
== END 2016-12-06 14:45 | disposition disaster alternative care site (69) | DRG 291 ==
LOC: GPCU 17:48
PROVIDERS: Family Medicine; Internal Medicine Critical Care Medicine; Internal Medicine Nephrology; ADMIT Family Medicine
PROC: B246ZZZ Ultrasonography of Right and Left Heart (ICD-10-PCS; principal; 2016-11-23)
PROC: 4A12XM4 Monitoring of Cardiac Stress, External Approach (ICD-10-PCS; 2016-11-24)
PROC: 3E073KZ Introduction of Other Diagnostic Substance into Coronary Artery, Percutaneous Approach (ICD-10-PCS; 2016-11-24)
PROC: 5A1D60Z (ICD-10-PCS; 2016-12-01)
DX: I13.0 Hypertensive heart and chronic kidney disease with heart failure and stage 1 through stage 4 chronic kidney disease, or unspecified chronic kidney disease (principal); I50.33 Acute on chronic diastolic (congestive) heart failure; J96.21 Acute and chronic respiratory failure with hypoxia; N17.9 Acute kidney failure, unspecified; E87.3 Alkalosis; Q25.6 Stenosis of pulmonary artery; Z68.41 Body mass index [BMI] 40.0-44.9, adult; E11.42 Type 2 diabetes mellitus with diabetic polyneuropathy; I27.2 Other secondary pulmonary hypertension; E87.1 Hypo-osmolality and hyponatremia; J44.1 Chronic obstructive pulmonary disease with (acute) exacerbation; N39.0 Urinary tract infection, site not specified; E66.01 Morbid (severe) obesity due to excess calories; E78.5 Hyperlipidemia, unspecified; E87.70 Fluid overload, unspecified; G47.34 Idiopathic sleep related nonobstructive alveolar hypoventilation; I25.10 Atherosclerotic heart disease of native coronary artery without angina pectoris; I73.9 Peripheral vascular disease, unspecified; J98.4 Other disorders of lung; M81.0 Age-related osteoporosis without current pathological fracture; N18.3 Chronic kidney disease, stage 3 (moderate); J20.9 Acute bronchitis, unspecified; Z87.891 Personal history of nicotine dependence
CPT/HCPCS: A9500; A9539; A9540; C1887; J0696; J1644; J1650; J1940; J1956; J2405; J2785; J2920; J2930; J3480; J7040; J7050; J7512

== ENCOUNTER → 2016-12-13 | Outpatient (CLI) | payer MEDICARE, BC ==
[~2016-12-13] MED LIST changes: +ANORO ELLIPTA1 EACH; +BUMEX1 MG PO; +CRESTOR20 MG PO; +DELTASONE10 MG PO; +HUMIBID LA (MU600 MG PO; +MIRALAX17 GM PO; +NITROGLYCERIN0.4 MG SL; +TESSALON PERLE100 MG PO
== END ==
LOC: LGSMG 13:53
DX: E11.9 Type 2 diabetes mellitus without complications (principal); I12.9 Hypertensive chronic kidney disease with stage 1 through stage 4 chronic kidney disease, or unspecified chronic kidney disease; N18.3 Chronic kidney disease, stage 3 (moderate)